=== PATIENT | male | born 1995 | race Caucasian/White ===

== ENCOUNTER 2016-12-23 10:16 | Emergency (ER) | payer MEDICAID, OTHER ==
[~2016-12-23] VITALS: Ht 177.8 cm; Wt 68.0 kg
--- NOTE | 2016-12-23 10:16 | NUR ---
Patient [place] [facility] [employer] to be evaluated as prebook, transferred to [facility]. RN evaluating patient.
--- NOTE | 2016-12-23 10:17 | NUR ---
Dr. Fisher evaluating patient in [facility].
[2016-12-23 10:24] VITALS: BP 169/109
--- NOTE | 2016-12-23 10:30 | NUR ---
Patient taken to XRAY by [facility], accompanied by Teresa CHAMPION.
--- NOTE | 2016-12-23 10:34 | NUR ---
PATIENT IS C/O ANTERIOR FACIAL PAIN R/T TO NOSE PAIN FROM BEING TAKEN DOWN BY PD.
--- NOTE | 2016-12-23 11:01 | NUR ---
CLIENT UNABLE TO PROVIDE URINE SPECIMEN
[2016-12-23 11:23] VITALS: BP 142/78
--- NOTE | 2016-12-23 11:24 | NUR ---
Patient discharged with v/s stable. Written and verbal after care instructions given and explained. Patient verbalized understanding. Ambulatory with in custody. All questions addressed prior to discharge. Advised to follow up with PMD.
== END 2016-12-23 11:24 ==
LOC: MED 10:16
DX: S09.90XA Unspecified injury of head, initial encounter (principal); F10.10 Alcohol abuse, uncomplicated; W51.XXXA Accidental striking against or bumped into by another person, initial encounter; Y93.89 Activity, other specified; Y92.89 Other specified places as the place of occurrence of the external cause; Y99.8 Other external cause status
CPT/HCPCS: 36415; 70160; 99284; G0482; 99285